=== PATIENT | male | born 1950 | race Caucasian/White ===

== ENCOUNTER → 2018-06-22 10:15 | Outpatient (CLI) | payer MEDICARE, OTHER, SELFPAY ==
[2018-06-22 11:32] LABS: AST(SGOT) 19 U/L (15-37); Alanine Aminotransfer ALT/SGPT 31 U/L (16-61); Albumin, Serum 3.7 g/dL (3.2-5.0); Alkaline Phosphatase 101 U/L (45-117); Bilirubin, Direct 0.26 mg/dL (0.00-0.30); Cholesterol 119 mg/dL (200); Globulin 3.4 g/dL (2.2-4.2); High Density Lipoprotein 34 mg/dL; Protein, Total 7.1 g/dL (6.4-8.2); Triglycerides 99 mg/dL; Very Low Density Lipoprotein 20 mg/dL (5-40)
== END ==
PROVIDERS: Family Provider Family Medicine; PCP Family Medicine; Visit Provider Internal Medicine Cardiovascular Disease
DX: E78.5 Hyperlipidemia, unspecified (principal); Z79.899 Other long term (current) drug therapy
CPT/HCPCS: 36415; 80061; 80076

== ENCOUNTER → 2018-07-13 15:24 | Outpatient (CLI) | payer MEDICARE, OTHER, SELFPAY ==
[2018-07-13 17:14] LABS: Absolute Lymphocyte Count 2.72 X10^3/ul (0.83-4.51); Absolute Neutrophil Count 8.2 X10^3/uL (2.0-7.7); Basophil# 0.04 X10^3/uL; Basophil% 0.3 % (0-1); Eosinophil# 0.21 X10^3/uL; Eosinophils% 1.8 % (0-5); Hematocrit 43.9 % (40-54); Hemoglobin 14.7 g/dl (13.0-16.5); Lymphocyte # 2.72 X10^3/ul (4.0); Lymphocyte % 22.9 % (19-41); Mean Corp Hgb Conc 33.5 g/gl (32-36); Mean Corpuscular Hgb 29.2 pg (27.0-32.0); Mean Corpuscular Volume 87.1 fL (80-94); Mean Platelet Vol. 11.2 fl (6.2-12.0); Monocyte# 0.71 X10^3/uL; Neutrophil # 8.21 X10^3/uL (2.7-7.7); Neutrophil % 68.9 % (47-70); Platelet Count 280 K/mm3 (150-450); RBC Distribution Width CV 13.3 % (11.6-14.6); RBC Distribution Width SD 42.2 fl (35.1-43.9); Red Blood Count 5.04 M/mm3 (4.6-6.2); White Blood Count 11.9 K/mm3 (4.4-11.0)
[2018-07-13 17:18] LABS: POSITIVE COUNT NO; POSITIVE DIFFERENTIAL NO; POSITIVE MORPHOLOGY NO
== END ==
PROVIDERS: Family Provider Family Medicine; PCP Family Medicine; Referring Provider Internal Medicine Cardiovascular Disease; Visit Provider Internal Medicine Cardiovascular Disease
DX: E78.5 Hyperlipidemia, unspecified (principal); I10 Essential (primary) hypertension; I25.10 Atherosclerotic heart disease of native coronary artery without angina pectoris; I48.91 Unspecified atrial fibrillation; F17.200 Nicotine dependence, unspecified, uncomplicated; Z95.1 Presence of aortocoronary bypass graft
CPT/HCPCS: 36415; 85025

== ENCOUNTER → 2018-07-20 06:35 | Outpatient (CLI) | payer MEDICARE, OTHER, SELFPAY ==
--- NOTE | 2018-07-20 06:36 | ECHOCS_ITS ---
Reason For Study: Afib/Flutter Procedure This was a 2D Doppler, Color Flow transthoracic echocardiogram. Contrast injection was performed. Exam performed in department. Left Ventricle Normal LV size. Mild concentric left ventricular hypertrophy. The estimated ejection fraction is 55 %. Unable to assess diastolic dysfunction due to arrhythmia. No regional wall motion abnormalities noted. Right Ventricle Normal RV size. Normal systolic function. Atria The left atrium is mildly enlarged. Normal right atrium. Mitral Valve Normal mitral valve. Tricuspid Valve Normal tricuspid valve. Mild tricuspid valve insufficiency. Aortic Valve Normal aortic valve. Pulmonic Valve The pulmonic valve is not well visualized. Great Vessels Normal aortic root. The pulmonary artery is normal size. Normal inferior vena cava. Pericardium/Pleural No pericardial effusion. Medication 22 gauge I.V. with prn adaptor inserted into right arm. Diluted definity 1ml given slow IV push to enhance endocardial definition. MMode/2D Measurements & Calculations LVIDd: 3.8 cm IVSd: 1.3 cm LVOT diam: 2.0 cm LVIDs: 2.5 cm LVPWd: 1.3 cm LVOT area: 3.1 cm2 RVDd: 3.7 cm FS: 35.0 % Ao root diam: 3.6 cm LAV(MOD-bp): 70.2 ml LA dimension: 4.5 cm LAV(MOD-bp) Indexed: 32.9 ml/m2 LA A4 area: 21.5 cm2 LAV(MOD-sp2): 84.1 ml LAV(MOD-sp4): 61.2 ml RA A4 area: 14.5 cm2 Time Measurements MV dec time: 0.13 sec Doppler Measurements & Calculations MV E max rony: 126.7 cm/sec MV V2 max: 130.5 cm/sec MV P1/2t max rony: 131.1 cm/sec MV max P.9 mmHg MV P1/2t: 64.8 msec MV V2 mean: 69.2 cm/sec MV dec slope: 592.8 cm/sec2 MV mean P.3 mmHg MVA(P1/2t): 3.4 cm2 MV V2 VTI: 31.2 cm MVA(VTI): 2.0 cm2 Ao V2 max: 145.4 cm/sec LV V1 max: 107.0 cm/sec SV(LVOT): 63.1 ml Ao max P.5 mmHg LV V1 max P.6 mmHg Ao V2 mean: 94.5 cm/sec LV V1 mean P.1 mmHg Ao mean P.1 mmHg LV V1 mean: 66.1 cm/sec Ao V2 VTI: 24.7 cm LV V1 VTI: 20.5 cm CHUCK(I,D): 2.6 cm2 CHUCK(V,D): 2.3 cm2 PA V2 max: 120.9 cm/sec TR max rony: 214.0 cm/sec TR max P.5 mmHg Interpretation Summary Normal LV size. The estimated ejection fraction is 55 %. Mild concentric left ventricular hypertrophy. Mild tricuspid valve insufficiency. Unable to assess diastolic dysfunction due to arrhythmia. Contrast injection was performed. Ordering Physician: Chapin Pratt Referring Physician: Chapin Pratt Performed By: Vu Romero, [facility]
--- NOTE | 2018-07-20 10:59 | STRESSREP ---
Stress Test Report Exercise myocardial perfusion stress test. 67-year-old man with a history of coronary artery disease and atrial fibrillation. Stress protocol: Resting EKG demonstrates atrial for ablation with rate of 93 bpm normal intervals and noted resting blood pressure 140/90 mmHg. The patient exercised according to regular Manny protocol for total duration of 5 minutes. The maximum heart rate attained was 171 bpm which was 113% maximum predicted heart rate the maximum workload was 7 metabolic equivalents. At rest there were no ST or T wave changes noted suggest ischemia peak exercise upsloping ST changes only were noted with no meet the criteria for ischemia. The resting blood pressure is 140/90 mmHg with a peak blood pressure 160/88 mmHg. Rate pressure product was 22,700. Myocardial perfusion protocol. 11.8 mCi of technetium 99m sestamibi was injected at rest. Patient exercised according to regular Manny protocol for 5 minutes attaining 113% of maximum predicted heart rate and a workload of 7 metabolic equivalents. At peak exercise 34.3 mCi of technetium 99m sestamibi was injected stress images were obtained stress and rest images were reconstructed and compared in the short axis vertical long horizontal long axis. Gated images were also obtained next Perfusion SPECT analysis: Review of the stress images demonstrate normal uptake of tracer noted in all areas of the myocardium. The resting images demonstrate normal uptake of tracer noted in all areas of the myocardium. No areas of reversibility are noted suggest ischemia. Gated SPECT analysis: The gated ejection fraction is 65%. Conclusion: Normal exercise myocardial perfusion stress test at a moderate workload. Preserved ejection fraction.
== END ==
PROVIDERS: Family Provider Family Medicine; PCP Family Medicine; Referring Provider Internal Medicine Cardiovascular Disease; Visit Provider Internal Medicine Cardiovascular Disease
DX: I48.91 Unspecified atrial fibrillation (principal); I25.10 Atherosclerotic heart disease of native coronary artery without angina pectoris
CPT/HCPCS: 78452; 93017; 93306; A9500; Q9957; A4216; C8929

== ENCOUNTER → 2018-08-24 10:14 | Day surgery (SDC) | payer MEDICARE, OTHER, SELFPAY ==
[2018-08-05 17:47] LABS: Anion Gap 9 (5-15); BUN 22 mg/dL (7-18); BUN/Creat Ratio 19.8 RATIO (10-20); Calcium,Total 8.9 mg/dL (8.5-10.1); Chloride 107 mmol/L (98-107); Creatinine, Serum 1.11 mg/dL (0.70-1.30); EST Glomerular Filtration Rate 70 mL/min (>60); Est Glom Filt Rate - Afr Amer 84 mL/min (>60); Glucose 95 mg/dL (74-106); Potassium 3.7 mmol/L (3.5-5.1); Sodium Level 142 mmol/L (136-145)
[2018-08-11 09:54] VITALS: BMI 28.8
--- NOTE | 2018-08-24 11:38 | PCM.OP.BLANK ---
Operative Report Date of Procedure: 08/24/18 DC cardioversion. 68-year-old man with a history of chronic persistent atrial fibrillation. The patient was brought to the cardiac catheterization lab in the postabsorptive nonsedated state. Patient had been compliant with his anticoagulation for at least 3 weeks. The patient was seen by Dr. Bowden of the critical care division. After informed consent was obtained anterior-posterior pads were applied. The patient was administered 100 mg of intravenous propofol and then 200 J of DC cardioversion energy were applied. The patient reverted to sinus rhythm briefly and then went back into atrial fibrillation. He subsequently had an additional 40 mg of intravenous propofol and 200 J of synchronized DC cardioversion energy were applied with reversal to sinus rhythm. This lasted approximately a minute and then she went back into atrial fibrillation. He then received 150 mg bolus of intravenous amiodarone and then received 60 mg of intravenous propofol in addition. 200 J of DC cardioversion energy were applied. There was reversal to sinus rhythm but this did not maintained. At this point it was decided to abort any further DC cardioversions and for him to start oral amiodarone 200 mg twice daily and to consider repeating this in 6 weeks. Conclusion: Unsuccessful DC cardioversion from atrial fibrillation to sinus rhythm.
--- NOTE | 2018-08-24 11:42 | PCM.OP.BLANK ---
Operative Report Date of Procedure: 08/24/18 CONSCIOUS SEDATION REPORT DATE OF SERVICE: August 24, 2018 BRIEF HISTORY OF PRESENT ILLNESS: The patient is a 68-year-old male that presented to [facility] for an elective outpatient cardioversion due to underlying atrial fibrillation. The patient denies a previous history of any anesthetic complications. He does report a current every day smoking history. However, he denies having been diagnosed with COPD or asthma previously. His last surface echocardiogram revealed an ejection fraction of approximately 55%. He is currently anticoagulated on Eliquis. PHYSICAL EXAMINATION: VITAL SIGNS: Reviewed and were acceptable. GENERAL: The patient is a male, in no apparent distress, speaking in full sentences. HEENT: Normocephalic, atraumatic. Mucous membranes are moist and pink. Good mouth opening noted. Trachea is midline. Good neck mobility. CHEST: S1, S2 irregularly irregular. No murmurs, rubs or gallops were noted. LUNGS: Clear to auscultation bilaterally without appreciable wheezes, rales or rhonchi. ABDOMEN: Soft, nontender, nondistended. Positive bowel sounds. EXTREMITIES: There is no clubbing, cyanosis or edema. ASA Class: II DESCRIPTION OF PROCEDURE: After confirmation of informed consent, the patient's anesthesia plan was reviewed in detail. Propofol was chosen. Risks and benefits were reviewed and the patient agreed to proceed. At 1059, the patient was given his first bolus of propofol. Two subsequent cardioversion attempts were unsuccessful in achieving normal sinus rhythm. Therefore, the patient was ordered to receive 150 mg of amiodarone, per Dr. Pratt at the bedside. Following this, a third attempt at cardioversion was undertaken. However, this too, was unsuccessful. In total, throughout the procedure, the patient received 200 mg of propofol to facilitate 3 separate cardioversions, all of which were delivered at 200 J. The patient was monitored until 1137, at which time he reached his baseline mental status and function. The patient tolerated the procedure well. COMPLICATIONS: None ESTIMATED BLOOD LOSS: None RECOMMENDATIONS: Okay to recover in usual fashion. Code Visit 9xxxx: Other Procedure See Report - [id number] (>10 mins)
== END ==
PROVIDERS: Family Provider Family Medicine; PCP Family Medicine; Referring Provider Internal Medicine Cardiovascular Disease; Visit Provider Internal Medicine Cardiovascular Disease
DX: I48.91 Unspecified atrial fibrillation (principal); F17.200 Nicotine dependence, unspecified, uncomplicated; I25.10 Atherosclerotic heart disease of native coronary artery without angina pectoris; I10 Essential (primary) hypertension; E78.5 Hyperlipidemia, unspecified; N40.0 Benign prostatic hyperplasia without lower urinary tract symptoms; J44.9 Chronic obstructive pulmonary disease, unspecified; I25.2 Old myocardial infarction; Z79.01 Long term (current) use of anticoagulants; Z95.1 Presence of aortocoronary bypass graft
CPT/HCPCS: 36415; 80048; 92960; 93005

== ENCOUNTER → 2018-11-05 08:31 | Outpatient (CLI) | payer MEDICARE, OTHER, SELFPAY ==
[2018-10-13 13:52] VITALS: BMI 29.7
[2018-11-05 10:44] LABS: Anion Gap 9 (5-15); BUN 20 mg/dL (7-18); Calcium,Total 8.8 mg/dL (8.5-10.1); Chloride 109 mmol/L (98-107); Creatinine, Serum 1.11 mg/dL (0.70-1.30); EST Glomerular Filtration Rate 70 mL/min (>60); Est Glom Filt Rate - Afr Amer 84 mL/min (>60); Glucose 136 mg/dL (74-106); Magnesium 2.3 mg/dL (1.6-2.6); Potassium 3.6 mmol/L (3.5-5.1); Sodium Level 143 mmol/L (136-145)
== END ==
PROVIDERS: Family Provider Family Medicine; PCP Family Medicine; Referring Provider Internal Medicine Cardiovascular Disease; Visit Provider Internal Medicine Cardiovascular Disease
DX: I48.91 Unspecified atrial fibrillation (principal)
CPT/HCPCS: 36415; 80048; 83735

== ENCOUNTER 2018-11-09 10:29 | Day surgery (SDC) | payer MEDICARE, OTHER, SELFPAY ==
[2018-10-13 13:52] VITALS: BMI 29.7
[2018-11-06 08:39] VITALS: BMI 29.7
--- NOTE | 2018-11-09 12:01 | PCM.OP.BLANK ---
Operative Report Date of Procedure: 11/09/18 DC cardioversion. 68-year-old man with a history of symptomatic persistent atrial fibrillation. The patient was brought to the cardiac catheterization lab in the presence of the nonsedated state. Compliance with anticoagulation regimen was verified. Informed consent was obtained. The patient was seen by Dr. Renee of the critical care division. Anterior posterior pads were applied. 300 J of synchronized biphasic DC cardioversion energy were applied with prompt reversal to sinus rhythm. The patient tolerated the procedure well. Conclusion: Successful DC cardioversion to sinus rhythm Patient to continue his previous current medications.
--- NOTE | 2018-11-09 12:59 | PCM.OP.BLANK ---
Problem List (1) Atrial fibrillation with rapid ventricular response Status: Acute (2) Atherosclerosis of coronary artery of [place] heart without angina pectoris Status: Chronic Comment: CABG x 2- ROBERT to LAD, SVG to PDA of RCA 01/22/2007 (3) Hyperlipidemia Status: Chronic Qualifiers: Hyperlipidemia type: pure hypercholesterolemia Qualified Code(s): E78.00 - Pure hypercholesterolemia, unspecified; E78.0 - Pure hypercholesterolemia (4) Hypertension Status: Chronic (5) Nicotine dependence Status: Chronic (6) H/O coronary artery bypass surgery Status: Resolved Comment: CABG x 2- ROBERT to LAD, SVG to PDA of RCA 01/22/2007 Operative Report Date of Procedure: 11/09/18 - Conscious sedation CONSCIOUS SEDATION REPORT BRIEF HISTORY OF PRESENT ILLNESS: The patient is a 68-year-old male who presented to [facility] for an elective outpatient cardioversion due to underlying atrial fibrillation. The patient reports no PO intake since midnight. The patient does not have a history of obstructive sleep apnea. The patient reports a history of smoking, but denies a history of COPD. The patient denies any recent constitutional symptoms such as fevers, chills, nausea or vomiting. The patient denies previous anesthetic complications. Patient received last cardioversion in August 2018, which required 3 attempts and used over 200 mg of fentanyl. PHYSICAL EXAMINATION: VITAL SIGNS: Reviewed and were acceptable. GENERAL: The patient is a male, in no apparent distress, speaking in full sentences. HEENT: Normocephalic, atraumatic. Mucous membranes are moist and pink. Good mouth opening noted. Trachea is midline. Good neck mobility. MP III CHEST: S1, S2 irregularly irregular. No murmurs, rubs or gallops were noted. LUNGS: Clear to auscultation bilaterally without appreciable wheezes, rales or rhonchi. ABDOMEN: Soft, nontender, nondistended. Positive bowel sounds. EXTREMITIES: There is no clubbing, cyanosis or edema. ASA Class: II DESCRIPTION OF PROCEDURE: After confirmation of informed consent, the patient's anesthesia plan was reviewed in detail. Propofol was chosen. Risks and benefits were reviewed and the patient agreed to proceed. At 11:40 AM, the patient was given 40 mg of propofol. The patient required a total of 90 mg of propofol throughout the procedure to achieve appropriate sedation. The patient achieved an appropriate level of sedation and received a attempt s synchronized cardioversion, at [address] Pratt at the bedside. This was successful in achieving normal sinus rhythm. The patient was monitored until 11:50 AM, at which time the patient reached their baseline mental status and function. The patient tolerated the procedure well. COMPLICATIONS: None ESTIMATED BLOOD LOSS: None RECOMMENDATIONS: Okay to recover in usual fashion. Code Visit 9xxxx: Other Procedure See Report - [id number] -10 minutes conscious sedation
--- NOTE | 2018-11-09 13:02 | OP.PCM_ITS ---
Problem List (1) Atrial fibrillation with rapid ventricular response Status: Acute (2) Atherosclerosis of coronary artery of [place] heart without angina pectoris Status: Chronic Comment: CABG x 2- ROBERT to LAD, SVG to PDA of RCA 01/22/2007 (3) Hyperlipidemia Status: Chronic Qualifiers: Hyperlipidemia type: pure hypercholesterolemia Qualified Code(s): E78.00 - Pure hypercholesterolemia, unspecified; E78.0 - Pure hypercholesterolemia (4) Hypertension Status: Chronic (5) Nicotine dependence Status: Chronic (6) H/O coronary artery bypass surgery Status: Resolved Comment: CABG x 2- ROBERT to LAD, SVG to PDA of RCA 01/22/2007 Operative Report Date of Procedure: 11/09/18 - Conscious sedation CONSCIOUS SEDATION REPORT BRIEF HISTORY OF PRESENT ILLNESS: The patient is a 68-year-old male who presented to [facility] for an elective outpatient cardioversion due to underlying atrial fibrillation. The patient reports no PO intake since midnight. The patient does not have a history of obstructive sleep apnea. The patient reports a history of smoking, but denies a history of COPD. The patient denies any recent constitutional symptoms such as fevers, chills, nausea or vomiting. The patient denies previous anesthetic complications. Patient received last cardioversion in August 2018, which required 3 attempts and used over 200 mg of fentanyl. PHYSICAL EXAMINATION: VITAL SIGNS: Reviewed and were acceptable. GENERAL: The patient is a male, in no apparent distress, speaking in full sentences. HEENT: Normocephalic, atraumatic. Mucous membranes are moist and pink. Good mouth opening noted. Trachea is midline. Good neck mobility. MP III CHEST: S1, S2 irregularly irregular. No murmurs, rubs or gallops were noted. LUNGS: Clear to auscultation bilaterally without appreciable wheezes, rales or rhonchi. ABDOMEN: Soft, nontender, nondistended. Positive bowel sounds. EXTREMITIES: There is no clubbing, cyanosis or edema. ASA Class: II DESCRIPTION OF PROCEDURE: After confirmation of informed consent, the patient's anesthesia plan was reviewed in detail. Propofol was chosen. Risks and benefits were reviewed and the patient agreed to proceed. At 11:40 AM, the patient was given 40 mg of propofol. The patient required a total of 90 mg of propofol throughout the procedure to achieve appropriate sedation. The patient achieved an appropriate level of sedation and received a attempt s synchronized cardioversion, at [address] Pratt at the bedside. This was successful in achieving normal sinus rhythm. The patient was monitored until 11:50 AM, at which time the patient reached their baseline mental status and function. The patient tolerated the procedure well. COMPLICATIONS: None ESTIMATED BLOOD LOSS: None RECOMMENDATIONS: Okay to recover in usual fashion. Code Visit 9xxxx: Other Procedure See Report - [id number] -10 minutes conscious sedation
== END 2018-11-09 12:50 | disposition home or self-care (01) ==
LOC: CLSP 10:30
PROVIDERS: Family Provider Family Medicine; PCP Family Medicine; Referring Provider Internal Medicine Cardiovascular Disease; Visit Provider Internal Medicine Cardiovascular Disease
DX: I48.91 Unspecified atrial fibrillation (principal); E78.00 Pure hypercholesterolemia, unspecified; I10 Essential (primary) hypertension; I25.10 Atherosclerotic heart disease of native coronary artery without angina pectoris; N40.0 Benign prostatic hyperplasia without lower urinary tract symptoms; J44.9 Chronic obstructive pulmonary disease, unspecified; I25.2 Old myocardial infarction; F17.200 Nicotine dependence, unspecified, uncomplicated; Z95.1 Presence of aortocoronary bypass graft
CPT/HCPCS: 92960; 93005; J7040

== ENCOUNTER → 2019-01-01 06:43 | Outpatient (CLI) | payer MEDICARE, OTHER, SELFPAY ==
[2018-11-06 08:39] VITALS: BMI 29.7
[2019-01-01 07:50] LABS: AST(SGOT) 19 U/L (15-37); Alanine Aminotransfer ALT/SGPT 28 U/L (16-61); Albumin, Serum 3.8 g/dL (3.2-5.0); Alkaline Phosphatase 109 U/L (45-117); Bilirubin, Direct 0.16 mg/dL (0.00-0.30); Cholesterol 123 mg/dL (200); High Density Lipoprotein 35 mg/dL; Protein, Total 6.8 g/dL (6.4-8.2); Triglycerides 99 mg/dL; Very Low Density Lipoprotein 20 mg/dL (5-40)
== END ==
PROVIDERS: Family Provider Family Medicine; PCP Family Medicine; Referring Provider Internal Medicine Cardiovascular Disease; Visit Provider Internal Medicine Cardiovascular Disease
DX: E78.5 Hyperlipidemia, unspecified (principal)
CPT/HCPCS: 36415; 80061; 80076

== ENCOUNTER → 2019-08-07 08:00 | Outpatient (CLI) | payer MEDICARE, OTHER, SELFPAY ==
[2019-01-18 15:22] VITALS: BMI 29.7
[2019-08-07 09:52] LABS: AST(SGOT) 25 U/L (15-37); Alanine Aminotransfer ALT/SGPT 30 U/L (16-61); Albumin, Serum 3.7 g/dL (3.2-5.0); Alkaline Phosphatase 114 U/L (45-117); Bilirubin, Direct 0.21 mg/dL (0.00-0.30); Cholesterol 111 mg/dL (200); Globulin 3.7 g/dL (2.2-4.2); High Density Lipoprotein 30 mg/dL; Protein, Total 7.4 g/dL (6.4-8.2); Triglycerides 81 mg/dL; Very Low Density Lipoprotein 16 mg/dL (5-40)
== END ==
PROVIDERS: Family Provider Family Medicine; PCP Family Medicine; Referring Provider Nurse Practitioner Family; Visit Provider Nurse Practitioner Family
DX: E78.5 Hyperlipidemia, unspecified (principal)
CPT/HCPCS: 36415; 80061; 80076

== ENCOUNTER 2019-08-20 09:48 | Emergency (ER) | payer MEDICARE, OTHER, SELFPAY ==
[2019-08-10 15:35] VITALS: BMI 28.8
[2019-08-20 09:49] VITALS: BP 170/107; PULSE 83; RESP 17; TEMP 36.7; O2SAT 99; BMI 28.5
--- NOTE | 2019-08-20 10:02 | CT_ITS ---
STUDY: CT ABDOMEN AND PELVIS WITHOUT CONTRAST REASON FOR EXAM: Male, 69 years old. Right flank pain. RADIATION DOSAGE (If Supplied By Facility): CTDIvol = ( 14.69 ) mGy, DLP = ( 749.98 ) mGycm TECHNIQUE: Transaxial images were obtained from the dome of the diaphragm to the symphysis pubis without oral contrast, and without intravenous contrast. Sagittal and coronal images were reconstructed. Individualized dose optimization techniques were used for this CT. COMPARISON: Comparison is made with prior examination dated November 24, 2015. FINDINGS: The visualized lung bases are unremarkable. Coronary artery calcification. Prior CABG. Normal liver. The patient is status post cholecystectomy. Normal spleen. Normal pancreas. Normal bilateral adrenal glands. Stable right renal cyst. Mild degree of bright hydronephrosis. There is evidence of a 2 mm calculus in the distal portion of the right ureter just proximal to the ureterovesical junction. There is a 7.8 cm x 8.1 cm cyst in the upper pole of the left kidney. This is essentially unchanged. Stable 4.3 cm by 5.6 cm cyst in the lower pole of the left kidney. Punctate calcification in the lower pole calyx of the left kidney. There is a small hiatal hernia. Normal small intestine. There are multiple colonic diverticula consistent with diverticulosis. The patient is status post appendectomy. There is diffuse atherosclerotic calcification of the abdominal aorta, without a demonstrated aneurysm. Normal inferior vena cava. Normal retroperitoneum. Normal urinary bladder. Small bilateral inguinal hernias containing fat. There are degenerative changes of the visualized lumbar spine. CT/Abdomen/Pelvis without Cont IMPRESSION: Mild degree of right hydronephrosis due to a 2 mm calculus in the distal portion of the right ureter just proximal to the ureterovesical junction. Stable bilateral renal cysts. Electronically Signed: Jimbo Davis, at 11:04 EST , Service support ,
[2019-08-20] MEDS: 0.9% Normal Saline 1,000 ML 125 ML IV (10:15)
[2019-08-20] MEDS: Ketorolac 30 MG/ML Syringe 15 MG IV (10:15)
[2019-08-20] MEDS: Ondansetron 4 MG/2 ML Vial IV (10:16)
[2019-08-20] MEDS: HYDROmorphone 1 MG/ML Syringe IV (10:19)
[2019-08-20 10:20] LABS: Absolute Lymphocyte Count 2.61 X10^3/uL (0.83-4.51); Absolute Neutrophil Count 5.9 X10^3/uL (2.0-7.7); Basophil# 0.07 X10^3/uL; Basophil% 0.7 % (0-1); Eosinophil# 0.19 X10^3/uL; Hematocrit 50.3 % (40-54); Hemoglobin 16.8 g/dL (13.0-16.5); Lymphocyte # 2.61 X10^3/ul (4.0); Lymphocyte % 27.4 % (19-41); Mean Corp Hgb Conc 33.4 g/dL (32-36); Mean Corpuscular Hgb 29.5 pg (27.0-32.0); Mean Corpuscular Volume 88.2 fL (80-94); Mean Platelet Vol. 10.8 fl (6.2-12.0); Monocyte# 0.72 X10^3/uL; Monocyte% 7.6 % (0-10); NRBC Flagged by Analyzer 0 % (0-5); Neutrophil # 5.89 X10^3/uL (2.7-7.7); Neutrophil % 61.9 % (47-70); Platelet Count 289 K/mm3 (150-450); RBC Distribution Width CV 12.7 % (11.6-14.6); RBC Distribution Width SD 40.7 fl (35.1-43.9); White Blood Count 9.5 K/mm3 (4.4-11.0)
[2019-08-20 10:30] LABS: Anion Gap 9 (5-15); BUN 15 mg/dL (7-18); BUN/Creat Ratio 14.2 RATIO (10-20); Calcium,Total 8.8 mg/dL (8.5-10.1); Chloride 108 mmol/L (98-107); Creatinine, Serum 1.06 mg/dL (0.70-1.30); EST Glomerular Filtration Rate 73 mL/min (>60); Est Glom Filt Rate - Afr Amer 89 mL/min (>60); Estimated Creatinine Clearance 70.16 ml/min; Glucose 134 mg/dL (74-106); Potassium 3.8 mmol/L (3.5-5.1); Sodium Level 141 mmol/L (136-145)
[2019-08-20 10:34] LABS: Mucous, Urine 0 SEEN /hpf (<or=2+)
[2019-08-20 10:36] LABS: Color, Urine Yellow (Yellow); Glucose, Dipstick Normal (Normal); Ketone-Dipstick Negative (Negative); Leukocyte Esterase-Dipstick 25 /ul (Negative); Nitrite-Dipstick Negative (Negative); Occult Blood-Urine 250 /ul (Negative); Protein-Dipstick 30 mg/dl (Negative); Urine Bilirubin Dipstick Negative (Negative); Urine Clarity Sl. Cloudy (Clear); Urine Urobilinogen Normal (Normal)
[2019-08-20 10:53] LABS: Red Blood Cells-Urine 25-50 SEEN /hpf (0-5); White Blood Cells 0-5 SEEN /hpf (0-5)
[2019-08-20 10:54] LABS: Bacteria 1+ /hpf (None Seen); Squamous Epithelial Cells - UA 0-5 SEEN /hpf (0-5)
--- NOTE | 2019-08-20 11:16 | ED.DCSUM_ITS ---
- ER Visit Summary Date of Service: 08/20/19 Chief Complaint: [Right flank pain] History of Present Illness: The patient is a 69 M [presents to the emergency department complaint of right flank pain that started around 8 AM. Patient states that initially with pain was mild but progressively became worse. Patient rates his pain currently a 9 out of 10. Patient believes he is passing a kidney stone as he is passed multiple in the past. Complains of nausea but no vomiting. Patient has history of coronary artery disease, hypertension, high cholesterol, and atrial fibrillation. She denies any fevers. He denies any dysuria.] Physical Examination: [HEENT-PERRLA, EOMI. Cranial nerves II through XII grossly intact. TMs clear. Mucous membranes moist. No adenopathy. Cardiovascular-regular rate and rhythm without murmur or ectopy Lungs-clear to auscultation, chest wall stable without crepitus or subcu emphysema Abdomen-normoactive bowel sounds, soft. Patient has tenderness palpation over the right lower quadrant. She has tenderness over the right costovertebral angl e. There is no rebound, rigidity, or perineal signs. Extremities-intact ?4, normal range of motion, normal pulses, atraumatic] Test Results: [CBC with differential and a 9.5, hemoglobin 16.8, hematocrit 50, platelets 289. Chemistries unremarkable. BUN was 15 and creatinine 1.06. Urinalysis showed 25 leukocyte esterase as well as 0-5 WBCs and 25-50 RBCs. Patient had +1 bacteria.] CT scan of the abdomen pelvis showed a 2 mm stone in the right distal ureter near the right UVJ with mild hydroureter. Emergency Department Course and Treatment: [Patient was medicated with Toradol 15 mg IV. Patient was given Dilaudid 1 mg IV and Zofran 4 mill grams IV.] Patient had mostly resolution of his pain. Treatment Plan: [Patient will be given urine strainers and a prescription for Staples. Patient also given a prescription for Zofran. Patient advised to follow-up with urology within next 3 to 5 days. Advised to return if worsening pain, fever, or conditions worsen anyway.] Disposition: [Discharged home in stable condition.] Impression: [Right kidney stone with colic] This note was generated with [employer] software. It may contain incorrect words, spelling, and punctuation that were not noted in review of the chart prior to signing ED Disposition - Plan for ED Patient: Referrals: Curt Hickman III, MD [Primary Care Provider] -
--- NOTE | 2019-08-20 11:20 | ED.DEP ---
ED Disposition - Plan for ED Patient: Instructions: KIDNEY STONE w/ Colic Prescriptions: Hydrocodone Bitart/Apap 5-325 [[place] 5MG-325MG] 1 tab PO Q4H PRN PRN 2 Days #20 tab PRN Reason: Pain Prescription Printed Ondansetron [Zofran Odt] 4 mg PO Q8H PRN PRN #10 tab PRN Reason: Nausea Prescription Printed Referrals: Curt Hickman III, MD [Primary Care Provider] - Yovany Carranza MD [STAFF PHYSICIAN] - 3-5 Days
[2019-08-20] MEDS: HYDROmorphone 0.5 MG/0.5 ML SYRINGE IV (11:36)
[2019-08-20 11:37] VITALS: BP 124/77; PULSE 62; RESP 15; O2SAT 97
== END 2019-08-20 11:40 | disposition home or self-care (01) ==
LOC: ED 10:27
PROVIDERS: Emergency Provider Emergency Medicine; Family Provider Family Medicine; PCP Family Medicine
DX: N13.2 Hydronephrosis with renal and ureteral calculous obstruction (principal); I10 Essential (primary) hypertension; E78.00 Pure hypercholesterolemia, unspecified; I25.10 Atherosclerotic heart disease of native coronary artery without angina pectoris; I48.91 Unspecified atrial fibrillation; Z79.899 Other long term (current) drug therapy; Z79.82 Long term (current) use of aspirin; Z79.01 Long term (current) use of anticoagulants
CPT/HCPCS: 74176; 80048; 81001; 85025; 96361; 96374; 96375; 96376; 99283; J7030; A4216; J2405

== ENCOUNTER 2020-01-29 10:41 | Emergency (ER) | payer MEDICARE, OTHER, SELFPAY ==
[2020-01-29 10:43] VITALS: BP 148/103; PULSE 124; RESP 17; TEMP 36.8; O2SAT 98; BMI 28.7
--- NOTE | 2020-01-29 10:50 | ED.VIS.EYE ---
History of Present Illness Chief Complaint: Eye Problem Informant: Patient Location: Left Eye Onset: Days - Initial injury occurred while using a circular saw. He thinks he may have cut into a nail. He was not wearing protective eyewear. Context: Sudden Onset Timing: Continuous Current Severity: Mild Maximum Severity: Moderate Worsened by: Light sensitivity Relieved by: Nothing Associated Symptoms - Eyes: Foreign body sensation, Pain, Photophobia, Redness History of injury: Yes Visual correction: None Narrative: Patient is a 69-year-old male with no history of glaucoma, diabetes or prior injury to the left eye who presents because of foreign body. He was sent from urgent care. The person urgent care thought he had a piece of wood. He denies drainage from the eye. He denies pain with movement. There is no history of metal pounding on metal. He was using a circular saw. There is history of possibly cutting into a nail. Prior similar symptoms: No Recent Illness/Hospitalization: No - Past Medical History (1) Atherosclerosis of coronary artery of [place] heart without angina pectoris Status: Chronic Comment: CABG x 2- ROBERT to LAD, SVG to PDA of RCA 01/22/2007 (2) Essential (primary) hypertension Status: Chronic (3) Hyperlipidemia Status: Chronic (4) Nicotine dependence Status: Chronic (5) Persistent atrial fibrillation Status: Chronic Past Medical History - Allergies and Home Meds Allergies/Adverse Reactions: Allergies lorazepam [From Ativan] Allergy (Verified 01/29/20 10:42) Other acetaminophen [From Darvocet-N] Adverse Reaction (Verified 01/29/20 10:42) Other oxycodone HCl [From Percocet] Adverse Reaction (Verified 01/29/20 10:42) Nausea propoxyphene napsylate [From Darvocet-N] Adverse Reaction (Verified 01/29/20 10:42) Other Primary Care Physician: Curt Hickman III, MD [Primary Care Provider] - Ty Lamar MD [STAFF PHYSICIAN] - Prior records reviewed: Yes Surgical History: noncontributory Lives: Spouse/ Significant Other Smoking Status: Current some day smoker Alcohol: Rare Drugs: None Review of Systems General: Denies: Fever, Malaise Eyes: Denies: Visual changes - bilaterally, Blurred Vision - bilaterally, Diplopia ENT: Denies: Rhinorrhea, Sore throat Skin: Denies: Rash, Wounds Neurological: Denies: Headache, Weakness, Numbness Hematologic: Denies: Easy bruising, Easy bleeding Allergy: Denies: Uticaria, Swelling of the mouth, Swelling of the tongue Physical Exam Visual Acuity: right: 20/20 - 20/25-1, left: 20/30 Visual Acuity: Uncorrected Right Conjunctiva/Sclera: - - There is no foreign body, no exudate, no subconjunctival hemorrhage. Left Conjunctiva/Sclera: Diffuse focal injection, - - There is no foreign body, no exudate, no subconjunctival hemorrhage. Left Cornea: Foreign body, - - Sukhjinder test. Extraocular Motion: Normal exam Pupils: Normal accomodation, PERRL Right pupil size in mm: 3 Left pupil size in mm: 3 Anterior chamber: Normal exam, - - There is no flare or cells noted in the anterior chamber. Vital Signs/Narrative: Vital Signs Temp Pulse Resp BP Pulse Ox 01/29/20 10:43 98.2 F 124 H 17 148/103 H 98 Inital Vital Signs reviewed: Yes General: Well nourished, Well developed Head: Normocephalic, Atraumatic ENT: Moist mucous membranes, No rhinorrhea, - - Is photophobia to direct light but not consensual light. Neck: Supple, Nontender Cardiovascular: No murmurs, Irregular Respiratory: No distress Skin: Normal color, No rash, No Trauma. Negative for: Cyanosis, Diaphoresis, Jaundice Neurological: Alert, Oriented x3, Cranial nerves II-XII grossly intact, Normal Strength, Normal Sensation Psychological: Normal affect Diagnostic/Tx/Re-eval - Treatment and Re-Evaluation Foreign body removal: Eye delilah Residual rust ring: Yes Tetracaine: left eye - The metallic foreign body was removed. There appeared to be some drainage under the foreign body. There is minimal residual rust ring that remains. Is not in the central visual axis. Dr. Lamar who is on for ophthalmology was paged to arrange follow-up for removal of residual rust ring. Plan is to discharge with antibiotic drops. ED Disposition - Plan for ED Patient: Disposition: Home or Assisted Living Diagnosis: Corneal foreign body with residual material Instructions: ED Foreign Body Cornea W Rust Ring Prescriptions: Ciprofloxacin 0.3% [Ciloxan] 1 drp LEFT EYE Q4 #1 bottle Transmission Status: Received by [id number] Referrals: Curt Hickman III, MD [Primary Care Provider] - Ty Lamar MD [STAFF PHYSICIAN] - 01/31/20 Additional Instructions: You may either presents to the office at 8 AM on Friday or call Friday morning for appointment to be seen on Friday.
[2020-01-29] MEDS: Tetracaine 0.5% Ophthalmic Bottle 1 DRP LEFT EYE (11:09)
[2020-01-29] MEDS: Fluorescein 1 MG STRIP 1 STRIP LEFT EYE (11:09)
== END 2020-01-29 11:36 | disposition home or self-care (01) ==
LOC: ED 11:33
PROVIDERS: Emergency Provider Emergency Medicine; PCP Family Medicine
DX: T15.02XA Foreign body in cornea, left eye, initial encounter (principal); I25.10 Atherosclerotic heart disease of native coronary artery without angina pectoris; I10 Essential (primary) hypertension; E78.5 Hyperlipidemia, unspecified; I48.19 Other persistent atrial fibrillation; F17.200 Nicotine dependence, unspecified, uncomplicated; Z95.1 Presence of aortocoronary bypass graft
CPT/HCPCS: 65220; 10120; 99282

== ENCOUNTER → 2020-02-16 | Outpatient (CLI) | payer MEDICARE, OTHER, SELFPAY ==
[2020-01-29 10:43] VITALS: BMI 28.7
[2020-02-16 09:00] LABS: AST(SGOT) 19 U/L (15-37); Alanine Aminotransfer ALT/SGPT 28 U/L (16-61); Albumin, Serum 3.7 g/dL (3.2-5.0); Alkaline Phosphatase 117 U/L (45-117); Bilirubin, Direct 0.29 mg/dL (0.00-0.30); Cholesterol 131 mg/dL (200); Globulin 3.4 g/dL (2.2-4.2); High Density Lipoprotein 40 mg/dL; Protein, Total 7.1 g/dL (6.4-8.2); Triglycerides 73 mg/dL; Very Low Density Lipoprotein 15 mg/dL (5-40)
== END | disposition home or self-care (01) ==
PROVIDERS: PCP Family Medicine; Referring Provider Nurse Practitioner Family; Visit Provider Nurse Practitioner Family
DX: E78.5 Hyperlipidemia, unspecified (principal)
CPT/HCPCS: 36415; 80061; 80076

== ENCOUNTER → 2020-10-17 08:34 | Outpatient (CLI) | payer MEDICARE, OTHER, SELFPAY ==
[2020-02-17 15:08] VITALS: BMI 28.8
[2020-10-17 10:44] LABS: AST(SGOT) 16 U/L (15-37); Alanine Aminotransfer ALT/SGPT 32 U/L (16-61); Albumin, Serum 3.8 g/dL (3.2-5.0); Alkaline Phosphatase 120 U/L (45-117); Bilirubin, Direct 0.29 mg/dL (0.00-0.30); Cholesterol 129 mg/dL (200); Globulin 3.4 g/dL (2.2-4.2); High Density Lipoprotein 41 mg/dL; Protein, Total 7.2 g/dL (6.4-8.2); Triglycerides 69 mg/dL; Very Low Density Lipoprotein 14 mg/dL (5-40)
== END ==
PROVIDERS: PCP Family Medicine; Referring Provider Nurse Practitioner Family; Visit Provider Nurse Practitioner Family
DX: E78.5 Hyperlipidemia, unspecified (principal); E78.00 Pure hypercholesterolemia, unspecified
CPT/HCPCS: 36415; 80061; 80076

== ENCOUNTER 2020-12-12 03:10 | Outpatient (RCR) | payer MEDICARE, OTHER, SELFPAY ==
[2020-10-17 12:44] VITALS: BMI 28.8
[2020-12-12] MEDS: COVID-19 VACC, MRNA(PFIZER)/PF 30 MCG/0.3 ML SYRINGE IM (18:34)
[2021-01-02] MEDS: COVID-19 VACC, MRNA(PFIZER)/PF 30 MCG/0.3 ML SYRINGE IM (18:05)
== END 2021-03-13 23:59 ==
LOC: IMMUN 03:10
PROVIDERS: PCP Family Medicine; Visit Provider Family Medicine
DX: Z23 Encounter for immunization (principal)
CPT/HCPCS: 0001A; 0002A; 91300

== ENCOUNTER → 2025-07-15 | Outpatient (CLI) | payer OTHER, SELFPAY ==
--- NOTE | 2025-07-15 12:32 | ECHOCS_ITS ---
Reason For Study Reason For Study: ATRIAL FIBRILLATION Procedure This was a 2D Doppler, Color Flow transthoracic echocardiogram. Contrast injection was performed. Exam performed in department. Left Ventricle Normal size and thickness. The left ventricular ejection fraction is 50 %. Unable to assess diastolic dysfunction due to arrhythmia. Right Ventricle Normal right ventricle. Atria The left atrium is severely enlarged. The right atrium is moderately enlarged. Mitral Valve Mild (1+) mitral valve insufficiency. Tricuspid Valve Mild (1+) tricuspid valve insufficiency. Right ventricular systolic pressure estimated to be 41 mmHg. Aortic Valve Mild diffuse aortic valve calcification. Aortic sclerosis, no stenosis. Pulmonic Valve The pulmonic valve is not well visualized. Great Vessels The aortic root is not well visualized. Pericardium/Pleural No pericardial effusion. Medication 22 gauge I.V. with prn adaptor inserted into right arm. Diluted definity 1ml given slow IV push to enhance endocardial definition. MMode/2D Measurements & Calculations LVIDd: 4.7 cm IVSd: 1.1 cm LVOT diam: 2.3 cm LVIDs: 3.3 cm LVPWd: 1.1 cm RVDd: 3.4 cm FS: 28.9 % LVOT area: 4.2 cm2 LA dimension: 5.8 cm LAV(MOD-bp): 64.8 ml LVAd ap4: 34.5 cm2 LAV(MOD-bp) Indexed: 31.4 ml/m2 LVLd ap4: 8.0 cm LAV(MOD-sp2): 73.3 ml EDV(MOD-sp4): 124.0 ml LAV(MOD-sp4): 54.7 ml EDV(sp4-el): 126.7 ml LVAs ap4: 23.0 cm2 LVLs ap4: 7.3 cm ESV(MOD-sp4): 58.6 ml ESV(sp4-el): 61.4 ml EF(MOD-sp4): 52.7 % EF(sp4-el): 51.5 % LVAd ap2: 33.9 cm2 SV(MOD-sp4): 65.4 ml SV(MOD-sp2): 68.1 ml LVLd ap2: 7.8 cm SI(MOD-sp4): 31.7 ml/m2 SI(MOD-sp2): 33.0 ml/m2 EDV(MOD-sp2): 119.0 ml EDV(sp2-el): 124.7 ml LVAs ap2: 21.3 cm2 LVLs ap2: 7.4 cm ESV(MOD-sp2): 50.9 ml ESV(sp2-el): 52.3 ml EF(MOD-sp2): 57.2 % SV(sp4-el): 65.3 ml Ao sinus diam: 3.1 cm LA A4 area: 20.6 cm2 LA dimension(2D): 5.0 cm RA A4 area: 15.4 cm2 TAPSE: 1.7 cm Doppler Measurements & Calculations MV E max rony: 115.6 cm/sec Ao V2 max: 165.3 cm/sec LV V1 max: 119.5 cm/sec Ao max P.9 mmHg LV V1 max P.7 mmHg Ao V2 mean: 129.7 cm/sec LV V1 mean P.6 mmHg Ao mean P.3 mmHg LV V1 mean: 89.9 cm/sec Ao V2 VTI: 32.9 cm LV V1 VTI: 23.7 cm AV (velocity ratio): 0.72 CHUCK(I,D): 3.0 cm2 CHUCK(V,D): 3.0 cm2 SV(LVOT): 99.5 ml PA V2 max: 118.6 cm/sec TR max rony: 255.0 cm/sec TR max P.1 mmHg ECHO/Echo Complete W/ Contrast Interpretation Summary The left ventricular ejection fraction is 50 %. The left atrium is severely enlarged. The right atrium is moderately enlarged. Mild (1+) mitral valve insufficiency. Mild (1+) tricuspid valve insufficiency. Right ventricular systolic pressure estimated to be 41 mmHg. Aortic sclerosis, no stenosis. Ordering Physician: Ty Engle Referring Physician: Ty Engle Performed By: Kaylan Albright RDCS
== END | disposition home or self-care (01) ==
LOC: CVS 12:31
PROVIDERS: PCP Chiropractor; Referring Provider Chiropractor; Visit Provider Chiropractor
DX: I08.3 Combined rheumatic disorders of mitral, aortic and tricuspid valves (principal); I48.91 Unspecified atrial fibrillation; I25.9 Chronic ischemic heart disease, unspecified
CPT/HCPCS: 93306; Q9957; A4216; C8929